=== PATIENT | female | born 1975 | race Caucasian/White ===

== ENCOUNTER 2023-11-09 00:23 | Day surgery (SDC) | payer BC, SELFPAY ==
[2023-10-31 16:28] VITALS: BMI 18.7
[2023-11-09 08:38] VITALS: BP 136/81; PULSE 65; RESP 16; TEMP 36.3; O2SAT 100
[2023-11-09] MEDS: LACTATED RINGERS 1,000 ML 150 ML IV CONT (08:48)
--- NOTE | 2023-11-09 08:49 | WPDANESEPPF ---
Anes - Initial Pre Proc Eval Procedure: Operation Date: 11/09/23 10:00 Proposed Procedures p Screening Colonoscopy - Enrique Wood MD Date/Time: 11/09/23 08:49 Surgeon: Enrique Wood MD Pre Op Diagnosis: neoplasm screening Patient Data Age: 48 Gender: F Height: 1.57 m Weight: 46.2 kg Last Vital Signs Temp 97.4 F L 11/09/23 08:38 Pulse 65 11/09/23 08:38 Resp 16 11/09/23 08:38 BP 136/81 11/09/23 08:38 Pulse Ox 100 11/09/23 08:38 O2 Del Method Room Air 11/09/23 08:38 Allergies Allergy/AdvReac Type Severity Reaction Status Date / Time epinephrine Allergy Intermediate Fainting Verified 11/09/23 08:36 Home Medications Medication Instructions Recorded Confirmed Type biotin 1 cap PO HS 10/31/23 11/09/23 History bupropion HCl 150 mg 24 hr tablet, 150 mg PO DAILY 10/31/23 11/09/23 History extended release cranberry 1 cap PO HS 10/31/23 11/09/23 History estradiol 0.05 mg/24 hr semiweekly 1 patch topical 2XW 10/31/23 11/09/23 History transdermal patch magnesium 500 mg tablet 500 mg PO HS 10/31/23 11/09/23 History melatonin 10 mg tablet 10 mg PO HS PRN Insomnia 10/31/23 11/09/23 History nicotine 10 mg inhalation cartridge 10 mg inhalation PRN PRN Smoking 10/31/23 11/09/23 History Cessation progesterone micronized 100 mg 100 mg PO EVERY OTHER DAY 10/31/23 11/09/23 History capsule Patient hx anesthesia problems: none Family hx anesthesia problems: none Results Review: All pre-operative results and documents have been reviewed as part of the pre-operative evaluation. [facility] Social History Social History Smoking packs per day: 1 Smoking cigarettes per day: 20.0 Years smoked: 30 Smoking pack-years: 30.00 Smoking status: Current every day smoker Tobacco type: cigarettes Additional smoking assessment comments: CURRENTLY QUITTING DOWN TO 13/CIG/DAY FOR PAST COUPLE MONTHS Alcohol intake: current Substance use: current Substance use type: marijuana Other substance usage details: EVERY OTHER DAY Living arrangements: with family Spiritual care concerns: No Anes - Eval Final PreProcedure Day of Procedure 11/09/23 08:49 Patient weight: normal Heart: regular rate and rhythm Lungs: clear to auscultation Airway: Mallampati scale class II Neurological: alert and oriented Last oral intake: >/= 8 hours ASA classification: II Emergent: no Anesthetic plan: proceed Anesthesia type and monitoring: general GIVS and standard monitoring Results Review: All pre-operative results and documents have been reviewed as part of the pre-operative evaluation. Informed Consent: The patient's anesthetic plan and its attendant risks and benefits were discussed with the patient/family/POA. Questions were solicited and answers provided to the satisfaction of the patient/family/POA.
--- NOTE | 2023-11-09 08:52 | PM.HPGS ---
History of Present Illness History of Present Illness Consent: Risks, benefits, and alternatives have been discussed and questions answered. Patient agrees to proceed with procedure. Chief complaint: neoplasm screening Narrative: Tonja Benitez is a 48 year old female here for first screening colonoscopy Review of Systems Review of Systems: All systems reviewed & are unremarkable except as noted in HPI and below PMFSH Past Medical History Medical History (Updated 11/09/23 @ 08:52 by Enrique Wood MD) Colon cancer screening Social History Social History Smoking packs per day: 1 Smoking cigarettes per day: 20.0 Years smoked: 30 Smoking pack-years: 30.00 Smoking status: Current every day smoker Tobacco type: cigarettes Additional smoking assessment comments: CURRENTLY QUITTING DOWN TO 13/CIG/DAY FOR PAST COUPLE MONTHS Alcohol intake: current Substance use: current Substance use type: marijuana Other substance usage details: EVERY OTHER DAY Living arrangements: with family Spiritual care concerns: No Meds Home Medications and Allergies Home Medications Medication Instructions Recorded Confirmed Type biotin 1 cap PO HS 10/31/23 11/09/23 History bupropion HCl 150 mg 24 hr tablet, 150 mg PO DAILY 10/31/23 11/09/23 History extended release cranberry 1 cap PO HS 10/31/23 11/09/23 History estradiol 0.05 mg/24 hr semiweekly 1 patch topical 2XW 10/31/23 11/09/23 History transdermal patch magnesium 500 mg tablet 500 mg PO HS 10/31/23 11/09/23 History melatonin 10 mg tablet 10 mg PO HS PRN Insomnia 10/31/23 11/09/23 History nicotine 10 mg inhalation cartridge 10 mg inhalation PRN PRN Smoking 10/31/23 11/09/23 History Cessation progesterone micronized 100 mg 100 mg PO EVERY OTHER DAY 10/31/23 11/09/23 History capsule Allergies Allergy/AdvReac Type Severity Reaction Status Date / Time epinephrine Allergy Intermediate Fainting Verified 11/09/23 08:36 Vital Signs Vital Signs - 24 hr 11/09/23 08:38 Temperature 97.4 F L Pulse Rate 65 Respiratory Rate 16 Blood Pressure 136/81 Pulse Oximetry 100 Oxygen Delivery Room Air Exam Const: General: comfortable and no acute distress HENMT: Face/Nose/Sinus: Normal nares present Eyes: General: appearance normal, both eyes and all related structures Neck: Neck: no JVD Resp: Auscultation: clear to auscultation bilaterally Cardio: Rate: regular rate Rhythm: regular rhythm GI: Inspection: non-distended GI Palp: Yes Soft to palpation Skin: General skin exam: normal color Neuro: General: gait normal Speech: normal speech Extrem: General: normal to inspection Psych: Mental Status: mental status grossly normal Assessment and Plan Assessment and plan (1) Colon cancer screening: Code(s): Z12.11 - Encounter for screening for malignant neoplasm of colon Status: Acute Assessment and Plan: colonoscopy
[2023-11-09 09:06] VITALS: BP 143/89; PULSE 77; RESP 24; O2SAT 100
[2023-11-09 09:16] VITALS: BP 134/73; PULSE 83; RESP 25; O2SAT 98
[2023-11-09 09:26] VITALS: BP 139/89; PULSE 64; RESP 22; O2SAT 100
== END 2023-11-09 09:33 | disposition home or self-care (01) ==
PROVIDERS: PCP Nurse Practitioner Family; Referring Provider Nurse Practitioner Family; Visit Provider Internal Medicine Gastroenterology
PROC: 0DJD8ZZ Inspection of Lower Intestinal Tract, Via Natural or Artificial Opening Endoscopic (ICD-10-PCS; CPT 45378; principal; 2023-11-09 10:00)
DX: Z12.11 Encounter for screening for malignant neoplasm of colon (principal); K64.8 Other hemorrhoids; F17.210 Nicotine dependence, cigarettes, uncomplicated; F12.90 Cannabis use, unspecified, uncomplicated
CPT/HCPCS: 45378; J7120

== ENCOUNTER 2024-05-16 13:49 | Outpatient (CLI) | payer OTHER, SELFPAY ==
--- NOTE | ~2024-05-16 | US_ITS ---
EXAMINATION: US soft tissue head and neck DATE: 05/16/2024 14:02 INDICATION: Left neck mass. TECHNIQUE: Multiple grayscale and Doppler ultrasound images of the neck were obtained. COMPARISON: None FINDINGS: In the left neck, there is a 2.5 x 1.4 x 1.6 cm lymph node. IMPRESSION: 1. Enlarged lymph node in left neck, which may be reactive or metastatic disease. Ultrasound-guided c ore needle biopsy is recommended. Reviewed, dictated and finalized at location A. [facility] [employer]PA[employer] IMPRESSION: 1. Enlarged lymph node in left neck, which may be reactive or metastatic diseas e. Ultrasound-guided core needle biopsy is recommended.
== END 2024-05-16 13:50 | disposition home or self-care (01) ==
PROVIDERS: PCP Nurse Practitioner Family; Visit Provider Nurse Practitioner Family
DX: R59.0 Localized enlarged lymph nodes (principal)
CPT/HCPCS: 76536